=== PATIENT | male | born 1965 | race Caucasian/White ===

== ENCOUNTER 2023-03-09 19:09 | Emergency (ER) | payer OTHER ==
[2023-03-09] MEDS: Aspirin 81 MG Tab.Chew ONE (19:23)
[2023-03-09] MEDS: Aspirin 81 MG Tab.Chew PO ONE (19:29)
[2023-03-09 19:35] LABS: O2 DELIVERY DEVICE NASAL CANNULA
[2023-03-09 19:36] LABS: ALLEN TEST positive; BASE EXCESS ARTERIAL -2 mmol/L ((-2)-(+3)); BICARBONATE,ARTERIAL 22.9 mmol/L (22-26); O2 SATURATION ARTERIAL 92 % (95-100); PCO2 ARTERIAL 43 mmHg (35-45); PH,ARTERIAL 7.34 (7.35-7.45); PO2 ARTERIAL 63 mmHg (70-100)
[2023-03-09 19:36] LABS: HEMATOCRIT 48.9 % (40.0-54.0); HEMOGLOBIN 16.9 g/dL (14.0-18.0); MEAN CORPUSCULAR HEMOGLOBIN 31.2 pg (27.0-34.0); MEAN CORPUSCULAR HGB CONC 34.6 g/dL (33.0-35.0); MEAN CORPUSCULAR VOLUME 90.4 fL (80-100); PLATELET COUNT,PLT 220 10^3/uL (150-450); RED BLOOD CELL COUNT 5.41 10^6/uL (4.6-6.2); WHITE BLOOD CELL COUNT,WBC 11.2 10^3/uL (5.0-10.0)
[2023-03-09 19:37] LABS: AMPHETAMINES,URINE NEGATIVE (NEGATIVE); BARBITURATES,URINE NEGATIVE (NEGATIVE); BENZODIAZEPINE,URINE NEGATIVE (NEGATIVE); MDMA (ECSTASY), URINE NEGATIVE (NEGATIVE); METHADONE,URINE NEGATIVE (NEGATIVE); METHAMPHETAMINES,URINE NEGATIVE (NEGATIVE); OPIATES,URINE NEGATIVE (NEGATIVE); OXYCODONE,URINE NEGATIVE (NEGATIVE); PHENCYCLIDINE,URINE NEGATIVE (NEGATIVE); TCA,URINE NEGATIVE (NEGATIVE)
[2023-03-09 19:38] LABS: APPEARANCE,URINE CLEAR (CLEAR); BILIRUBIN,URINE NEGATIVE (NEGATIVE); COLOR,URINE YELLOW (YELLOW); GLUCOSE,URINE NEGATIVE (NEGATIVE); KETONES,URINE NEGATIVE (NEGATIVE); LEUKOCYTE ESTERASE,URINE NEGATIVE (NEGATIVE); NITRITE,URINE NEGATIVE (NEGATIVE); OCCULT BLOOD,URINE MODERATE (NEGATIVE); PH,URINE 5.5 (5.0-9.0); PROTEIN,URINE >=300 (NEGATIVE); UROBILINOGEN,URINE 0.2 mg/dL (0.2-1.0)
[2023-03-09 19:38] LABS: BASOPHILS PERCENT AUTO 0.3 % (0.0-1.0); EOSINOPHILS PERCENT AUTO 0.7 % (1.0-3.0); LYMPHOCYTES PERCENT AUTO 32.6 % (20.5-50.1); MONOCYTES PERCENT AUTO 8.4 % (2-8)
[2023-03-09] MEDS: Sodium Chloride 0.9% 1,000 ML IV ONE (19:50)
[2023-03-09] MEDS: Heparin Sodium 5,000 Units/ML Vial IVPUSH ONE (19:50)
[2023-03-09] MEDS: Heparin Sodium/0.45% NaCl 25,000 UNITS/500 ML BAG IV SCH (19:51)
[2023-03-09] MEDS: Sodium Chloride 0.9% 10 ML Syringe FLUSH PRN (19:55)
[2023-03-09 19:56] LABS: LACTIC ACID 3.4 mmol/L (0.4-2.0)
[2023-03-09 19:57] LABS: LYMPHOCYTES PERCENT MAN 25 % (20-50); MONOCYTES PERCENT MAN 13 % (2-8); SEG NEUTROPHILS PERCENT MAN 62 % (42-75)
[2023-03-09 20:00] LABS: A/G RATIO 1.2; ALANINE AMINOTRANSFERASE,ALT 154 U/L (16-63); ALKALINE PHOSPHATASE 55 U/L (46-116); ASPARTATE AMNIOTRANSFERASE,AST 143 U/L (15-37); BILIRUBIN TOTAL 0.5 mg/dL (0.2-1.0); BLOOD UREA NITROGEN,BUN 25 mg/dL (7-18); BUN/CREATININE RATIO 16.2 (No establ ref range); C-REACTIVE PROTEIN < 0.50 ng/dL (<=0.50); CARBON DIOXIDE,CO2 24 mmol/L (21-32); CHLORIDE,CL 99 mmol/L (98-107); CREATININE 1.54 mg/dL (0.70-1.30); ESTIMATED GFR 52 mL/min (>=60); ETHANOL BLOOD MEDICAL < 3 mg/dL (0); GLUCOSE RANDOM 176 mg/dL (70-99); PROTEIN TOTAL,TP 7.4 g/dL (6.4-8.2); SODIUM,NA 137 mmol/L (136-145); TSH ULTRASENSITIVE 3.41 uIU/mL (0.36-3.74)
[2023-03-09 20:01] LABS: EPITHELIAL CELLS,URINE FEW /HPF (NOT SEEN); RBC,URINE 20-30 /HPF (0-5)
[2023-03-09 20:02] LABS: AMORPHOUS SEDIMENT,URINE FEW /HPF (NOT SEEN); BACTERIA,URINE FEW /HPF (0-FEW/HPF); FINE GRANULAR CASTS,URINE FEW /LPF (NOT SEEN); GRANULAR CASTS,URINE FEW; HYALINE CASTS,URINE RARE; MUCUS,URINE FEW /LPF (NOT SEEN)
[2023-03-09 20:07] LABS: B-TYPE NATRIURETIC PEPTIDE,BNP 7 pg/ml (0-100)
[2023-03-09 20:08] LABS: PROTHROMBIN TIME 9.9 SEC (9.0-12.0); PTT,PARTIAL THROMBOPLSTIN TIME 21.9 SEC (22.0-34.0)
[2023-03-09 20:10] LABS: CORONAVIRUS COVID-19 NAA NEGATIVE (NEGATIVE); INFLUENZA A NAA NEGATIVE (NEGATIVE); INFLUENZA B NAA NEGATIVE (NEGATIVE); RESPIRATORY SYNCYTIAL VIR NAA NEGATIVE (NEGATIVE)
== END 2023-03-09 20:37 ==
LOC: DL.ED 19:09
DX: I46.9 Cardiac arrest, cause unspecified (principal); R06.03 Acute respiratory distress
CPT/HCPCS: 0241U; 36415; 36600; 51702; 71045; 80053; 80305-QW; 80307; 81001; 82803; 82947; 83605; 83735; 83880; 84443; 84484; 85025; 85610; 85730; 86140; 93005; 94660; 96361; 96374; 99285-25; A9270-GY; J1644; J3490; J7030

== ENCOUNTER 2023-03-23 13:20 | Emergency (ER) | payer SELFPAY ==
[2023-03-23] MEDS ORDERED: fentaNYL 100 MCG/2 ML SDV IVPUSH ONE ×2 (13:30→15:11)
[2023-03-23] MEDS ORDERED: Sodium Chloride 0.9% 10 ML Syringe FLUSH PRN (13:31)
[2023-03-23] MEDS ORDERED: Ondansetron 4 MG/2 ML SDV IV ONE (13:31)
[2023-03-23 13:49] LABS: BASOPHILS PERCENT AUTO 0.2 % (0.0-1.0); EOSINOPHILS PERCENT AUTO 0.1 % (1.0-3.0); HEMATOCRIT 33.1 % (40.0-54.0); HEMOGLOBIN 10.7 g/dL (14.0-18.0); LYMPHOCYTES PERCENT AUTO 3.7 % (20.5-50.1); MEAN CORPUSCULAR HEMOGLOBIN 30.6 pg (27.0-34.0); MEAN CORPUSCULAR HGB CONC 32.3 g/dL (33.0-35.0); MEAN CORPUSCULAR VOLUME 94.6 fL (80-100); MONOCYTES PERCENT AUTO 5.3 % (2-8); NEUTROPHILS PERCENT AUTO 90.7 % (42.2-75.2); PLATELET COUNT,PLT 371 10^3/uL (150-450); WHITE BLOOD CELL COUNT,WBC 19.7 10^3/uL (5.0-10.0)
[2023-03-23 14:07] LABS: PROTHROMBIN TIME 10.6 SEC (9.0-12.0); PTT,PARTIAL THROMBOPLSTIN TIME 31.2 SEC (22.0-34.0)
[2023-03-23 14:12] LABS: A/G RATIO 0.8; ALBUMIN 3.4 g/dL (3.4-5.0); ANION GAP 14.9 mEq/L (7-13); BILIRUBIN TOTAL 1.2 mg/dL (0.2-1.0); BUN/CREATININE RATIO 15.5 (No establ ref range); CALCIUM 9.4 mg/dL (8.5-10.1); CREATININE 1.29 mg/dL (0.70-1.30); EST CRCL DRUG DOSING (CG) 66.48 mL/min; POTASSIUM,K 3.9 mmol/L (3.5-5.1); PROTEIN TOTAL,TP 7.8 g/dL (6.4-8.2)
[2023-03-23 14:13] LABS: LACTIC ACID 1.4 mmol/L (0.4-2.0)
[2023-03-23 14:18] LABS: APPEARANCE,URINE CLEAR (CLEAR); BILIRUBIN,URINE NEGATIVE (NEGATIVE); COLOR,URINE DARK YELLOW (YELLOW); GLUCOSE,URINE NEGATIVE (NEGATIVE); KETONES,URINE NEGATIVE (NEGATIVE); LEUKOCYTE ESTERASE,URINE NEGATIVE (NEGATIVE); NITRITE,URINE NEGATIVE (NEGATIVE); OCCULT BLOOD,URINE TRACE-INTACT (NEGATIVE); PH,URINE 5.5 (5.0-9.0); PROTEIN,URINE NEGATIVE (NEGATIVE); UROBILINOGEN,URINE 0.2 mg/dL (0.2-1.0)
[2023-03-23 14:32] LABS: EPITHELIAL CELLS,URINE NOT SEEN /HPF (NOT SEEN); HYALINE CASTS,URINE RARE; MUCUS,URINE FEW /LPF (NOT SEEN)
[2023-03-23 14:33] LABS: AMORPHOUS SEDIMENT,URINE RARE /HPF (NOT SEEN); BACTERIA,URINE RARE /HPF (0-FEW/HPF); RBC,URINE 0-5 /HPF (0-5); WBC,URINE 0-5 /HPF (0-5/HPF)
[2023-03-23] MEDS ORDERED: Sodium Chloride 0.9% 1,000 ML IV ONE (14:46)
[2023-03-23] MEDS ORDERED: Cefepime 2 GM Vial IVPUSH ONE (14:50)
[2023-03-23] MEDS ORDERED: metroNIDAZOLE/Normal Saline 500 MG in Premix Bag 1 BAG IV ONE (14:50)
[2023-03-23 15:59] LABS: CORONAVIRUS COVID-19 NAA NEGATIVE (NEGATIVE); INFLUENZA A NAA NEGATIVE (NEGATIVE); INFLUENZA B NAA NEGATIVE (NEGATIVE); RESPIRATORY SYNCYTIAL VIR NAA NEGATIVE (NEGATIVE)
== END 2023-03-23 16:22 ==
LOC: DL.ED 13:20
DX: J95.89 Other postprocedural complications and disorders of respiratory system, not elsewhere classified (principal); J90 Pleural effusion, not elsewhere classified; I25.10 Atherosclerotic heart disease of native coronary artery without angina pectoris; Z79.899 Other long term (current) drug therapy; Z95.1 Presence of aortocoronary bypass graft; Z86.74 Personal history of sudden cardiac arrest; Z20.822 Contact with and (suspected) exposure to COVID-19
CPT/HCPCS: 0241U; 36415; 71045; 74176; 80053; 81001; 83605; 83880; 84145; 84484; 85025; 85610; 85730; 87040; 93005; 93010; 96365; 96375; 96376; 99285; 99285-25; J0692; J1836; J3010; J3490; J7030